=== PATIENT | female | born 2000 | race Two or more races ===

== ENCOUNTER 2025-02-16 22:13 | Emergency (ER) | payer BC, OTHER, SELFPAY ==
[2025-02-16 22:13] VITALS: BP 120/68; PULSE 98; RESP 19; TEMP 36.6; O2SAT 100
--- NOTE | 2025-02-16 22:24 | XR_ITS ---
Examination: Complete OB ultrasound, less than 14 weeks, transabdominal Date and time of exam: February 16, 2025 1110 hrs. Indications: Right flank pain pelvic pain today Technique: Obstetrical ultrasound images less than 14 weeks performed via transabdominal imaging Findings: A normal shaped single intrauterine gestation is present in the uterus. pole 7.8 cm corresponds to 13 weeks 6 days gestational age Cardiac motion 178 BPM No subchorionic hemorrhage Ultrasonographic survey of visible and placental structures unremarkable. Amniotic fluid volume appears appropriate for this estimated gestational age. Ovaries obscured by bowel gas Impression: Viable intrauterine gestation 13 weeks 6 days.
--- NOTE | 2025-02-16 22:24 | XR_ITS ---
Examination: Retroperitoneal ultrasound, complete Technique: Multiple high resolution grayscale images of the retroperitoneum obtained, including kidneys and bladder. Exam date and time:February 16, 2025 1109 hrs. Indications: Onset flank pain beginning this morning Findings: Right kidney 10.2 cm cortex 2.2 cm Left kidney 10.9 cm cortex 2.7 cm No renal calculi or hydronephrosis Contracted urinary bladder Impression: No renal calculi or hydronephrosis
--- NOTE | 2025-02-16 22:25 | PD.EDRME ---
Rapid Medical Screening Exam RME Arrival date/time: 02/16/25 22:13 24 yo f present to Ed for c/o abd/flank pain, 14 week I have greeted and performed a focused initial assessment of this patient. A comprehensive ED assessment and evaluation of the patient, analysis of all test results, and completion of the medical decision making process will be conducted by additional ED providers. Chief Complaint: Abdominal Pain Time Seen by Provider: 02/16/25 22:21
[2025-02-16 23:22] LABS: Basophils % (Auto) 0 % (0-2.5); Eosinophils # (Auto) 0.3 Thou/mm3 (0.0-0.5); Eosinophils % (Auto) 3 % (0-10); Hematocrit 33.5 % (36.0-46.0); Hemoglobin 12.1 g/dL (12.0-16.0); Immature Granulocytes % (Auto) 0 % (0-0); Immature Granulocytes Auto 0.04 Thou/mm3 (0.00-0.00); Lymphocytes # (Auto) 2.9 Thou/mm3 (1.0-4.8); Lymphocytes % (Auto) 27 % (10-50); Mean Corpuscular HGB Conc 36.1 g/dl (31.0-37.0); Mean Corpuscular Hemoglobin 31.3 pg (25.0-35.0); Mean Corpuscular Volume 87 fL (80-100); Monocytes # (Auto) 0.9 Thou/mm3 (0.0-0.8); Monocytes % (Auto) 8 % (0-12); Neutrophils # (Auto) 6.7 Thou/mm3 (1.8-7.7); Neutrophils % (Auto) 62 % (37-80); Nucleated Red Blood Cell % 0 /100 WBC (0); Platelet Count 365 Thou/mm3 (140-440); RDW Standard Deviation 40.7 fL (36.4-46.3); Red Blood Count 3.87 Miln/mm3 (4.00-5.20); White Blood Count 10.9 Thou/mm3 (3.6-11.0)
[2025-02-16 23:38] LABS: Alanine Aminotransferase 21 U/L (10-49); Albumin, Serum 4.1 gm/dL (3.5-5.0); Albumin/Globulin Ratio 1.3 (1.2-2.2); Alkaline Phosphatase 47 U/L (46-116); Anion Gap 10 (7-16); Aspartate Amino Transferase 23 U/L (0-34); BUN/Creatinine Ratio 10 Ratio (12-20); Bilirubin,Total 0.7 mg/dL (0.3-1.2); Blood Urea Nitrogen 5 mg/dL (9-23); Calcium 9.2 mg/dL (8.3-10.6); Calcium (Corrected) 9.2 mg/dL (8.5-10.1); Carbon Dioxide 24.6 mMol/L (20.0-31.0); Chloride 106 mMol/L (98-107); Creatinine (Component) 0.5 mg/dL (0.6-1.3); Globulin 3.1 gm/dL (2.3-3.5); Glucose 83 mg/dL (74-106); Osmolality,Calculated 277 (275-295); Potassium 3.6 mMol/L (3.4-5.1); Sodium 141 mMol/L (136-145); Total Protein 7.2 gm/dL (5.7-8.2); eGFR > 60 See Note
[2025-02-17 00:03] VITALS: BP 111/76; PULSE 99; RESP 19; TEMP 36.9; O2SAT 99
[2025-02-17 00:15] LABS: Beta HCG,Quantitative 44493 mIU/mL (<5.0)
--- NOTE | 2025-02-17 00:42 | PRELIM_ITS ---
Renal/Retroperitoneal Ultrasound with Doppler. February 16, 2025 at 2309 hours Clinical History: Flank pain Technique: Duplex scan of the bilateral renal arterial and venous tree was performed utilizing 2D grayscale imaging, Doppler spectral analysis, and color flow. Comparison: No prior study is available for comparison. Findings: Right Kidney: Measures 10.2 cm and is unremarkable. No hydronephrosis or renal calculus. The corticomedullary differentiation is maintained. Left Kidney: Measures 10.9 cm and is unremarkable. No hydronephrosis or renal calculus. The corticomedullary differentiation is maintained. No abnormalities detected by Doppler. Impression: Unremarkable renal ultrasound examination. Report Electronically Signed By: Ross Turcios 02/17/2025 12:41:14 AM [EST]
--- NOTE | 2025-02-17 01:01 | PRELIM_ITS ---
Obstetric ultrasound (transabdominal) with Doppler. February 16, 2025 at 2316 hours Clinical history: Abdominal /flank pain. Technique: Real-time ultrasound was performed using Duplex scanning including arterial inflow, venous outflow, color, and spectral Doppler analysis of both ovaries. Comparison: No prior study is available for comparison. Findings: There is an intrauterine gestation with a single live fetus of mean gestational age 13 weeks and 6 days (CRL = 7.8 cm). cardiac activity is present at a heart rate of 178 beats per minute. The uterus measures 13.7 x 7.2 x 11.3 cm. The ovaries were not visualized. There is no free fluid in the pelvis. The cervix measures 3.2 cm, closed. No abnormalities detected by Doppler. Impression: Intrauterine gestation with a single live fetus of mean gestational age 13 weeks and 6 days. Report Electronically Signed By: Ross Turcios 02/17/2025 1:00:44 AM [EST]
[2025-02-17 01:09] LABS: Collection Type, Urine Voided
[2025-02-17 01:42] LABS: Bacteria,Urine Rare; Bilirubin,Urine Negative (Negative); Blood,Urine Negative (Negative); Clarity,Urine Clear (Clear/Hazy); Color,Urine Colorless (Lt Yel-Yel); Glucose, Urine Negative (Negative); Ketones,Urine Negative (Negative); Leukocyte Esterase,Urine Negative (Negative); Nitrite,Urine Negative (Negative); PH,Urine 6.5 (5.0-7.0); Protein,Urine Negative (Neg - Trace); RBC,Urine 1 /hpf (0-3); Specific Gravity,Urine 1.004 (1.001-1.035); Squamous Epithelial Cell,Urine 2 /hpf (0-5); Urobilinogen,Urine Negative mg/dL (0.0-1.0); WBC,Urine < 1 /hpf (0-5)
--- NOTE | 2025-02-17 02:06 | PD.EDABDPN ---
ED Abdominal Pain RME/HPI General Chief Complaint: Abdominal Pain Stated complaint: BILATERAL FLANK PAIN Time seen by provider: 02/16/25 22:21 Arrival date/time: 02/16/25 22:13 24 year old female present to emergency room with c/o of bilateral flank pain for 2 days. pt report being 14 week . SEVERITY: Symptoms are described as being severe with limitations on activities of daily living CONTEXT: The patient is unable to identify any inciting events. DURATION/TIMING: The symptoms started approximately 2 days ASSOCIATED SYMPTOMS: The patient is unable to identify any other associated symptoms. MODIFYING FACTORS: The patient is unable to identify any alleviating or aggravating symptoms. PERTINENT ROS: no fevers, no cough, no chest pain/shortness of breath no nausea,vomiting, diarrhea, no dizziness/headache no rash no loc/syncope episode no dsyuria,urgency,frequency REVIEW OF SYSTEMS: See History of Present Illness - with the exception of those mentioned in the history of present illness, all other systems reviewed and reported as negative GENERAL: In general the patient is awake, interactive, in an emergency department gurney. HEAD/EYES/EARS/NOSE/THROAT: normo-cephalic, atraumatic, mucus membranes are moist, anicteric, palpebral conjunctiva is pink, trachea is midline. CARDIOVASCULAR: regular rate and regular rhythm, no murmurs, heart sounds are not distant, strong pulses in all four extremities that are equal and symmetric bilateral upper and lower extremities, normal capillary refill. CHEST/PULMONARY: normal chest rise and fall, good air movement, clear to auscultation bilaterally, normal inspiratory to expiratory ratios without evidence of respiratory distress. NECK: No midline/Paraspinal tenderness, no step off ROM/Strenght intact No Kernig and bruzinski sign. No trauma ABDOMEN: soft, not tender, no masses appreciated BACK: + flank tenderness, normal range of motion without pain. NEUROLOGICAL: cranio-facial features are symmetric, moves all four extremities equally without obvious limitations or weakness. EXTREMITY: no tenderness to palpation over the long bones or large joints of the bilateral upper and lower extremities, no joint swelling, no joint erythema, no signs of trauma, no unilateral leg swelling and no peripheral edema. SKIN: warm, dry, well-perfused, no jaundice, no rash, no telangiectasias or petechia. PSYCH: calm, cooperative, no evidence of psychosis or agitation RME / HPI RME / HPI narrative: 02/16/25 22:13 24 yo f present to Ed for c/o abd/flank pain, 14 week I have greeted and performed a focused initial assessment of this patient. A comprehensive ED assessment and evaluation of the patient, analysis of all test results, and completion of the medical decision making process will be conducted by additional ED providers. Related Data Home Medications ?Medication ?Instructions ?Recorded ?Confirmed No Known Home Medications 05/10/19 05/10/19 Allergies Allergy/AdvReac Type Severity Reaction Status Date / Time No Known Allergies Allergy Verified 05/10/19 23:43 Course Course Course Narrative: basic labs, US renal/OB urine, HCG Quality Measures none Orders Category Date Time Status US OB <= 14 weeks fetus Stat Exams 02/16/25 22:24 Taken US renal BI Stat Exams 02/16/25 22:24 Taken ABO/RH Type Stat Lab 02/16/25 22:50 Completed Beta HCG,Quantitative Stat Lab 02/16/25 22:50 Completed CBC Stat Lab 02/16/25 22:50 Completed CMP [Comprehensive Metabolic Panel] Stat Lab 02/16/25 22:50 Completed UA [Urinalysis] Stat Lab 02/17/25 00:55 Completed Urine Culture Stat Lab 02/17/25 00:55 Received Vital Signs Vital signs: Vital Signs Temperature 98 F 02/16/25 22:13 Pulse Rate 98 02/16/25 22:13 Respiratory Rate 19 02/16/25 22:13 Blood Pressure 120/68 02/16/25 22:13 Pulse Oximetry (%) 100 02/16/25 22:13 Oxygen Delivery Method Room Air 02/16/25 22:13 Abdominal Pain MDM Patient data External records reviewed:: [facility] previous records Clinical information provided by:: patient Social determinants that could affect healthcare access:: none Patient has the following chronic illnesses:: n/a How is presenting disease/condition affected by chronic disease/condition?: no chronic disease Evaluation data The following diagnostics were reviewed and interpreted by me:: lab results and radiology exam(s) Lab and/or radiology exams considered but not ordered:: n/a Interpretation Summary: OB/Renal US :no acute findings cbc/cmp no acute findings urine: no infection Medications / Prescriptions Medications or Prescriptions considered but not ordered:: n/a Medication administrations:: n/a Consultations Consultation(s) initiated? (list below): No Diagnosis Differential diagnosis abdominal pain: abdominal pain, calculus of kidney, gastroenteritis and other (, UTI) Most likely diagnosis given after review of the tests above:: Admission Indicated Admission indicated?: not indicated Admission Request Was there a request for admission?: No Disposition Plan Disposition Plan: Discharge Discharge Attestation Discharge Attestation: The patient and all family members were given an opportunity to ask questions and understood the discharge instructions. Discharge instructions specifically effects, indications for sooner follow up or return to the emergency department, and the expected course of current diagnosis. Patient condition: Stable Discharge Plan Plan Patient Disposition: HOME (Self Care) Health Concerns: Follow with PMD as directed Return to ED if sx worsen Prescriptions/Referrals Prescriptions/Med Rec: No Action No Known Home Medications Referrals: No Primary/Family,Physician [Primary Care Provider] - In 1 week Problem List Clinical Impression: Patient/Caregiver Discharge Instructions Education Materials: Preg 2nd Trimester Print Language: [place] Stand Alone Forms: Heidi Award Info., Patient Portal Info Letter
== END 2025-02-17 02:34 | disposition home or self-care (01) ==
PROVIDERS: Physician Assistant; Emergency Provider Emergency Medicine
DX: O26.892 Other specified pregnancy related conditions, second trimester (principal); Z3A.14 14 weeks gestation of pregnancy; R10.9 Unspecified abdominal pain
CPT/HCPCS: 36415; 76770; 76801; 80053; 81001; 84702; 85025; 86900; 86901; 87077; 87086; 87186; 99284